=== PATIENT | female | born 1995 ===

== ENCOUNTER 2017-04-03 18:33 | Emergency (ER) | payer MEDICAID ==
[2017-04-03 19:31] VITALS: BMI 23.5
[2017-04-03 19:59] LABS: BASO # 0.02 K/mm3 (0.0-2.0); BASO % 0.4 % (0.0-3.0); GRAN # 3.37 (1.4-6.5); GRAN % 60.4 % (50.0-68.0); LYMPH # 1.3 (1.2-3.4); LYMPH % 23.9 % (22.0-35.0); MEAN CELL VOLUME 77.9 fl (80.0-105.0); MEAN CORPUSCULAR HEMOGLOBIN 24.8 pg (25.0-35.0); MEAN CORPUSCULAR HGB CONC 31.8 g/dl (31.0-37.0); MEAN PLATELET VOLUME 9.5 fl (7.0-11.0); MONO # 0.9 (0.1-0.6); MONO % 15.3 % (1.0-6.0); RBC 4.44 10^6/uL (3.5-6.1); RED CELL DISTRIBUTION WIDTH 15.5 % (11.5-14.5); WHITE BLOOD COUNT 5.6 10^3/ul (4.5-11.0)
[2017-04-03 20:03] LABS: URINE BILIRUBIN NEGATIVE (NEGATIVE); URINE BLOOD TRACE-INTACT (NEGATIVE); URINE GLUCOSE (UA) NEGATIVE (NEGATIVE); URINE LEUKOCYTE ESTERASE SMALL Leu/uL (NEGATIVE); URINE NITRATE NEGATIVE (NEGATIVE); URINE PROTEIN 100 mg/dL (<30 mg/dL); URINE UROBILINOGEN 0.2 E.U./dL (<1 E.U./dL)
[2017-04-03 20:08] LABS: URINE APPEARANCE SLIGHT-CLOUDY (CLEAR); URINE COLOR YELLOW (YELLOW)
[2017-04-03 20:13] LABS: ALB/GLOB RATIO 1.3 (1.1-1.8); ALBUMIN 4.4 g/dL (3.0-4.8); ALT/SGPT 29 U/L (7-56); AST/SGOT 40 U/L (14-36); BLOOD UREA NITROGEN 11 mg/dL (7-21); CALCIUM 9.6 mg/dL (8.4-10.5); GFR AFRICAN-AMERICAN > 60; GFR NON-AFRICAN AMERICAN > 60
[2017-04-03 20:17] LABS: URINE BACTERIA SMALL (NEG); URINE EPITHELIAL CELLS TNTC /hpf (0-5); URINE RBC 0 - 2 /hpf (0-2); URINE WBC 15 - 20 /hpf (0-6)
--- NOTE | 2017-04-03 20:42 | ED PDOC ---
Arrival/HPI - General Chief Complaint: Syncope Time Seen by Provider: 04/03/17 18:55 Historian: Patient, Family (sister) EM Caveat: Acuity of Condition - History of Present Illness Narrative History of Present Illness (Text): 04/03/17 20:34 Pt is a 21 yo Female brought in by ambulance for a syncopal event that lasted over 20 minutes according to the patient's sister, who is at bedside. Pt reports that she was sleeping all day, got up to have a shower and fainted in the bathroom, hitting her head on the wall before she passed out. Reports that the last syncopal event occurred in [place]; when she returned to home, an EEG was done along with labs and was told to drink more fluids and take a multivitamin. EMT could not arouse pt today until en route to [facility]. Pt reports that she feels like she may be sick and had sick contacts recently. Denies chest pain, shortness of breath, nausea, vomiting, diarrhea, neck pain or stiffness, GI bleed, hematuria. Time/Duration: Prior to Arrival (17:26) Symptom Onset: Sudden Symptom Course: Unchanged, Improving Quality: Unable to Describe Severity Level: 3 Activities at Onset: Rest Context: Home Past Medical History - Provider Review Nursing Documentation Reviewed: Yes - Travel History Have you recently traveled outside [place] w/in the past 3 mons?: Yes If Yes, travel location?: [place] - Infectious Disease Hx of Infectious Diseases: None - Reproductive Menopause: No - Neurological Hx Syncope: Yes - Endocrine/Metabolic Hx Endocrine Disorders: No - Integumentary Hx Dermatological Disorder: No - Musculoskeletal/Rheumatological Hx Musculoskeletal Disorders: No - Gastrointestinal Hx Gastrointestinal Disorders: No - Psychiatric Hx Psychophysiologic Disorder: No Hx Substance Use: No - Anesthesia Hx Anesthesia: No Family/Social History - Physician Review Nursing Documentation Reviewed: Yes Family/Social History: Unknown Family HX Smoking Status: Never Smoked Hx Alcohol Use: No Hx Substance Use: No Allergies/Home Meds Allergies/Adverse Reactions: Allergies No Known Allergies Allergy (Verified 04/03/17 19:28) Review of Systems - Review of Systems Systems not reviewed;Unavailable: Acuity of Condition Constitutional: Normal Eyes: Normal ENT: Normal Respiratory: Normal Cardiovascular: Normal Gastrointestinal: Normal Genitourinary Female: Normal Musculoskeletal: Normal Skin: Normal Neurological: Normal Endocrine: Normal Hemo/Lymphatic: Normal Psychiatric: Normal Physical Exam Vital Signs Reviewed: Yes Vital Signs Temp Pulse Resp BP Pulse Ox 04/03/17 22:44 98.9 F 60 16 106/80 97 04/03/17 19:17 99.3 F 71 20 95/56 L 98 04/03/17 19:01 98.9 F 75 16 96/62 L 97 Temperature: Afebrile Blood Pressure: Normal Pulse: Regular Respiratory Rate: Normal Appearance: Positive for: Well-Appearing, Non-Toxic, Comfortable Pain Distress: None Mental Status: Positive for: Alert and Oriented X 3 - Systems Exam Head: Present: Atraumatic, Normocephalic Pupils: Present: PERRL Extroacular Muscles: Present: EOMI Conjunctiva: Present: Normal Mouth: Present: Moist Mucous Membranes Neck: Present: Normal Range of Motion Respiratory/Chest: Present: Clear to Auscultation, Good Air Exchange. No: Respiratory Distress, Accessory Muscle Use Cardiovascular: Present: Regular Rate and Rhythm, Normal S1, S2. No: Murmurs Abdomen: Present: Normal Bowel Sounds. No: Tenderness, Distention, Peritoneal Signs Back: Present: Normal Inspection Upper Extremity: Present: Normal Inspection. No: Cyanosis, Edema Lower Extremity: Present: Normal Inspection. No: Edema Neurological: Present: GCS=15, CN II-XII Intact, Speech Normal Skin: Present: Warm, Dry, Normal Color. No: Rashes Psychiatric: Present: Alert, Oriented x 3, Normal Insight, Normal Concentration Medical Decision Making ED Course and Treatment: 04/03/17 20:42 Impression Pt is a 21 yo Female brought in by ambulance for a syncopal event that lasted over 20 minutes according to the patient's sister. On PE, pt is A&Ox3, resting comfortably in bed byut complains of ELLIOTT and weakness. Plan: Assess electrolytes, cbc, glucose, Assess and dispo Progress Note Positive for UTI Low Fe of 26 and percent saturation low at 6%; iron def anemia likely cause of syncope Head CT w/o contrast reveals chronic sinusitis other curry unremarkable Discussed findings with pt and advised to follow up with PMD in the next 2 days ; iron supplementation given and advised on diet and hydration - Lab Interpretations Microbiology Results: Microbiology Results 04/03/17 20:00 Urine,Clean Catch Urine Culture - Final Lab Results: 04/03/17 19:45 04/03/17 19:45 Lab Results 04/03/17 19:45: Iron 26 L, TIBC 420, % Saturation 6 L 04/03/17 19:45: Sodium 138, Potassium 3.8, Chloride 103, Carbon Dioxide 22, Anion Gap 17, BUN 11, Creatinine 0.9, Est GFR ( Amer) > 60, Est GFR (Non- Af Amer) > 60, Random Glucose 95, Calcium 9.6, Total Bilirubin 0.4, AST 40 H, ALT 29, Alkaline Phosphatase 72, Total Protein 7.7, Albumin 4.4, Globulin 3.3, Albumin/Globulin Ratio 1.3 04/03/17 19:45: Urine Color Yellow, Urine Appearance Slight-cloudy, Urine pH 6.0 , Ur Specific [place] >= 1.030, Urine Protein 100 H, Urine Glucose (UA) Negative , Urine Ketones 40 H, Urine Blood Trace-intact H, Urine Nitrate Negative, Urine Bilirubin Negative, Urine Urobilinogen 0.2, Ur Leukocyte Esterase Small H, Urine RBC 0 - 2, Urine WBC 15 - 20, Ur Epithelial Cells Tntc, Urine Bacteria Small 04/03/17 19:45: WBC 5.6, RBC 4.44, Hgb 11.0 L, Hct 34.6 L, MCV 77.9 L, MCH 24.8 L, MCHC 31.8, RDW 15.5 H, Plt Count 296, MPV 9.5, Gran % 60.4, Lymph % (Auto) 23.9, [place] % (Auto) 15.3 H, Eos % (Auto) 0.0 L, Baso % (Auto) 0.4, Gran # 3.37, Lymph # (Auto) 1.3, [place] # (Auto) 0.9 H, Eos # (Auto) 0.0, Baso # (Auto) 0.02 I have reviewed the lab results: Yes Interpretation: Abnormal lab values (Pos UTI) - RAD Interpretation Narrative RAD Interpretations (Text): 04/03/17 21:53 HEAD W/O CONTRAST Exam Date: 04/03/17 This imaging exam was performed at [facility] EXAM: CT Head Without Intravenous Contrast CLINICAL HISTORY: 21 years old, female; Signs and symptoms; Syncope and collapse and other: Syncope TECHNIQUE: Axial computed tomography images of the head/brain without intravenous contrast. All CT scans at this facility use one or more dose reduction techniques, viz.: automated exposure control; ma/kV adjustment per patient size (including targeted exams where dose is matched to indication; i.e. head); or iterative reconstruction technique. Coronal and sagittal reformatted images were created and reviewed. COMPARISON: No relevant prior studies available. FINDINGS: Brain: No intracranial hemorrhage. No mass. No definite edema. Ventricles: No hydrocephalus. Bones/joints: No acute fracture. Soft tissues: Unremarkable. Sinuses: Moderate to extensive mucosal thickening/fluid of ethmoid sinuses. [id number] mucosal thickening/air fluid levels of maxillary sinuses. Minimal mucosal thickening of sphenoid sinuses. Mastoid air cells: No mastoid effusion. Orbits: Unremarkable as visualized. IMPRESSION: 1. No definite acute intracranial abnormality. 2. Sinus disease. Radiology Orders: 04/03/17 20:56 HEAD W/O CONTRAST [CT] Stat - Medication Orders Current Medication Orders: Discontinued Medications Nitrofurantoin Macrocrystals (Macrobid) 100 mg PO Q12 STA Stop: 04/03/17 20:52 Last Admin: 04/03/17 21:48 Dose: 100 mg Disposition/Present on Arrival - Present on Arrival Any Indicators Present on Arrival: Yes History of DVT/PE: No History of Uncontrolled Diabetes: No Urinary Catheter: No History of Decub. Ulcer: No History Surgical Site Infection Following: None - Disposition Have Diagnosis and Disposition been Completed?: Yes Diagnosis: Syncopal episodes, UTI (urinary tract infection) Disposition: HOME/ ROUTINE Disposition Time: 22:01 Patient Plan: Discharge Condition: STABLE Discharge Instructions (ExitCare): Urinary Tract Infection in Women (ED), Syncope (ED), Iron Deficiency Anemia (ED) Additional Instructions: Dear Catalina, You have been prescribed medication for a urinary tract infection along with iron supplementation for anemia, both of which may have caused you to feel weak and faint. Please take the medication as directed and see your primary doctor in the next few days. Drink plenty of fluids and eat regular meals. If you develop any alarming symptoms such as a high fever, shortness of breath, chest pain or stomacjh pain, return to the ER for evaluation. All the best in your recovery! Prescriptions: Iron,Carbonyl/Ascorbic Acid [Iron 100-Vitamin C Tablet] 1 each PO Q12 14 Days # 28 tablet Nitrofurantoin Macrocrystal [Nitrofurantoin] 100 mg PO BID 7 Days #14 capsule Forms: [employer] (Taiwanese)
[2017-04-03 21:24] LABS: IRON 26 ug/dL (45-180)
[2017-04-03 21:34] LABS: % IRON SATURATION 6 % (20-55); TOTAL IRON BINDING CAPACITY 420 ug/dL (265-497)
--- NOTE | 2017-04-03 21:41 | CT ---
EXAM: CT Head Without Intravenous Contrast CLINICAL HISTORY: 21 years old, female; Signs and symptoms; Syncope and collapse and other: Syncope TECHNIQUE: Axial computed tomography images of the head/brain without intravenous contrast. All CT scans at this facility use one or more dose reduction techniques, viz.: automated exposure control; ma/kV adjustment per patient size (including targeted exams where dose is matched to indication; i.e. head); or iterative reconstruction technique. Coronal and sagittal reformatted images were created and reviewed. COMPARISON: No relevant prior studies available. FINDINGS: Brain: No intracranial hemorrhage. No mass. No definite edema. Ventricles: No hydrocephalus. Bones/joints: No acute fracture. Soft tissues: Unremarkable. Sinuses: Moderate to extensive mucosal thickening/fluid of ethmoid sinuses. [id number]-[id number] mucosal thickening/air fluid levels of maxillary sinuses. Minimal mucosal thickening of sphenoid sinuses. Mastoid air cells: No mastoid effusion. Orbits: Unremarkable as visualized. IMPRESSION: 1. No definite acute intracranial abnormality. 2. Sinus disease.
[2017-04-03 22:46] VITALS: BP 106/80; PULSE 60; RESP 16; TEMP 98.9; O2SAT 97
== END 2017-04-03 22:44 | disposition home or self-care (01) ==
LOC: ED 18:33
DX: R55 Syncope and collapse (principal); N39.0 Urinary tract infection, site not specified

== ENCOUNTER 2017-04-05 14:31 | Emergency (ER) | payer MEDICAID ==
[2017-04-05 15:57] VITALS: BMI 25.0
[2017-04-05 16:00] VITALS: BP 95/63; TEMP 99.5
[2017-04-05 16:03] VITALS: O2SAT 99
[2017-04-05] MEDS ORDERED: Sodium Chloride 0.9% 1,000 ML IV STA (16:34)
--- NOTE | 2017-04-05 16:41 | ED PDOC ---
Arrival/HPI - General Chief Complaint: Female Genitourinary Time Seen by Provider: 04/05/17 15:49 Historian: Patient - History of Present Illness Narrative History of Present Illness (Text): 04/05/17 16:36 Pt is a 21 yo F with no significant PMH presents to Emergency department due to urinary incontinence 2/2 UTI and fatigue. Patient was recently seen at [facility] Emergency department 2 days ago due to syncopal episode and fatigue. Pt was found to have UTI and anemia. Patient was discharged with Macrobid and Iron pills. However, due to an insurance issue, patient was unable to obtain medications until today. Pt states that today she had urinary urgency, but was unable to urinate. Pt states that fatigue has remained the same since she was discharged 2 days ago. Pt complains of RLQ and suprapubic abdominal pain. Pt denied chest pain, sob, nausea, vomiting, fever, chills, headache, or dizziness. Past Medical History - Infectious Disease Hx of Infectious Diseases: None - Cardiac Hx Cardiac Disorders: No - Pulmonary Hx Respiratory Disorders: No - Neurological Hx Syncope: Yes - HEENT Hx HEENT Disorder: No - Renal Hx Renal Disorder: No - Endocrine/Metabolic Hx Endocrine Disorders: No - Hematological/Oncological Hx Anemia: Yes - Integumentary Hx Dermatological Disorder: No - Musculoskeletal/Rheumatological Hx Musculoskeletal Disorders: No - Gastrointestinal Hx Gastrointestinal Disorders: No - Psychiatric Hx Psychophysiologic Disorder: No Hx Substance Use: No - Anesthesia Hx Anesthesia: No Family/Social History Family/Social History: No Known Family HX Smoking Status: Never Smoked Hx Alcohol Use: No Hx Substance Use: No Allergies/Home Meds Allergies/Adverse Reactions: Allergies No Known Allergies Allergy (Verified 04/05/17 15:57) Review of Systems - Review of Systems Constitutional: Normal Eyes: Normal ENT: Normal Respiratory: Normal Cardiovascular: Chest Pain Gastrointestinal: Abdominal Pain Genitourinary Female: Normal Musculoskeletal: Normal Skin: Normal Neurological: Normal Endocrine: Normal Hemo/Lymphatic: Normal Psychiatric: Normal Physical Exam Vital Signs Temp Pulse Resp BP Pulse Ox 04/05/17 18:05 100 H 19 99 04/05/17 16:00 99.5 F 107 H 20 95/63 L 99 04/05/17 15:58 99.5 F 118 H 20 95/63 L 98 Finger Stick Blood Glucose: 89 - Systems Exam Head: Present: Atraumatic, Normocephalic Extroacular Muscles: Present: EOMI Mouth: Present: Moist Mucous Membranes Neck: Present: Normal Range of Motion Respiratory/Chest: Present: Clear to Auscultation. No: Accessory Muscle Use, Wheezes, Rales, Rhonchi Cardiovascular: Present: Regular Rate and Rhythm, Normal S1, S2. No: Murmurs, Rub, Gallop Abdomen: Present: Tenderness (RLQ, suprapubic). No: Distention, Peritoneal Signs, Guarding Upper Extremity: Present: Normal Inspection Lower Extremity: Present: Normal Inspection Neurological: Present: GCS=15 Skin: Present: Warm, Dry, Normal Color Psychiatric: Present: Alert, Oriented x 3 Medical Decision Making ED Course and Treatment: 04/05/17 16:42 Assessment: 21 yo F with no significant PMH presents to Emergency department for UTI and anemia. Plan: - CBC - CMP - EKG - Lipase - Coags - NPO - NS bolus 04/05/17 17:28 CBC consistent with Iron deficiency anemia. Urinalysis negative for UTI. 04/05/17 17:57 Chest X-ray interpreted by myself is negative CT offered, patient denied - Lab Interpretations Lab Results: 04/05/17 16:48 04/05/17 16:48 Lab Results 04/05/17 16:48: Sodium 138, Potassium 4.1, Chloride 103, Carbon Dioxide 23, Anion Gap 16, BUN 6 L, Creatinine 0.8, Est GFR ( Amer) > 60, Est GFR (Non -Af Amer) > 60, Random Glucose 94, Calcium 9.1, Total Bilirubin 0.3, AST 39 H, ALT 34, Alkaline Phosphatase 61, Total Protein 7.4, Albumin 4.2, Globulin 3.2, Albumin/Globulin Ratio 1.3, Lipase 67 04/05/17 16:48: PT 16.0 H, INR 1.39 H, APTT 32.3 04/05/17 16:48: WBC 3.9 L D, RBC 4.36, Hgb 10.8 L, Hct 34.0 L, MCV 78.0 L, MCH 24.8 L, MCHC 31.8, RDW 15.4 H, Plt Count 248, MPV 9.4, Gran % 65.7, Lymph % ( Auto) 17.9 L, [place] % (Auto) 16.4 H, Eos % (Auto) 0.0 L, Baso % (Auto) 0.0, Gran # 2.56, Lymph # (Auto) 0.7 L, [place] # (Auto) 0.6, Eos # (Auto) 0.0, Baso # (Auto ) 0.00 04/05/17 15:58: Urine Color Yellow, Urine Appearance Turbid, Urine pH 6.0, Ur Specific [place] >= 1.030, Urine Protein Trace H, Urine Glucose (UA) Negative, Urine Ketones 15 H, Urine Blood Moderate H, Urine Nitrate Negative, Urine Bilirubin Negative, Urine Urobilinogen 0.2, Ur Leukocyte Esterase Negative, Urine RBC 0 - 2, Urine WBC 0 - 2, Ur Epithelial Cells 4 - 5, Urine Bacteria Few , Urine HCG, Qual Negative - RAD Interpretation Radiology Orders: 04/05/17 16:40 CXR [CHEST TWO VIEWS (PA/LAT)] [RAD] Stat - Medication Orders Current Medication Orders: Discontinued Medications Sodium Chloride (Sodium Chloride 0.9%) 1,000 mls @ 1,000 mls/hr IV .Q1H STA Stop: 04/05/17 17:33 Last Admin: 04/05/17 16:49 Dose: 1,000 mls/hr eMAR Start Stop Document 04/05/17 16:49 [email or web address] (Rec: 04/05/17 16:49 [email or web address] [id number]) Intravenous Solution Start Date 04/05/17 Start Time 16:49 End Date 04/05/17 Disposition/Present on Arrival - Present on Arrival Any Indicators Present on Arrival: No History of DVT/PE: No History of Uncontrolled Diabetes: No Urinary Catheter: No History of Decub. Ulcer: No History Surgical Site Infection Following: None - Disposition Have Diagnosis and Disposition been Completed?: Yes Diagnosis: Anemia Disposition: HOME/ ROUTINE Disposition Time: 17:58 Condition: STABLE Discharge Instructions (ExitCare): Urinary Tract Infection in Women (DC), Iron Deficiency Anemia (ED) Additional Instructions: 1. Take Nitrofurantoin and Iron pills as prescribed 2. Follow up with PMD within 1 week Referrals: Lizandro Dunham MD [Primary Care Provider] - Follow up with primary Forms: [employer] (Luxembourgish), [employer] (Ugandan), SCHOOL NOTE
[2017-04-05 16:49] LABS: URINE APPEARANCE TURBID (CLEAR); URINE BILIRUBIN NEGATIVE (NEGATIVE); URINE BLOOD MODERATE (NEGATIVE); URINE COLOR YELLOW (YELLOW); URINE GLUCOSE (UA) NEGATIVE (NEGATIVE); URINE LEUKOCYTE ESTERASE NEGATIVE Leu/uL (NEGATIVE); URINE NITRATE NEGATIVE (NEGATIVE); URINE PROTEIN TRACE mg/dL (<30 mg/dL); URINE UROBILINOGEN 0.2 E.U./dL (<1 E.U./dL)
[2017-04-05 16:53] LABS: HCG,QUALITATIVE URINE NEGATIVE (NEGATIVE)
[2017-04-05 16:55] LABS: URINE BACTERIA FEW (NEG); URINE RBC 0 - 2 /hpf (0-2); URINE WBC 0 - 2 /hpf (0-6)
[2017-04-05 17:00] LABS: GRAN # 2.56 (1.4-6.5); GRAN % 65.7 % (50.0-68.0); HEMOGLOBIN 10.8 g/dL (12.0-16.0); LYMPH # 0.7 (1.2-3.4); LYMPH % 17.9 % (22.0-35.0); MEAN CORPUSCULAR HEMOGLOBIN 24.8 pg (25.0-35.0); MEAN CORPUSCULAR HGB CONC 31.8 g/dl (31.0-37.0); MEAN PLATELET VOLUME 9.4 fl (7.0-11.0); MONO # 0.6 (0.1-0.6); MONO % 16.4 % (1.0-6.0); RBC 4.36 10^6/uL (3.5-6.1); RED CELL DISTRIBUTION WIDTH 15.4 % (11.5-14.5); WHITE BLOOD COUNT 3.9 10^3/ul (4.5-11.0)
[2017-04-05 17:10] LABS: INR 1.39 (0.93-1.08); PARTIAL THROMBOPLASTIN TIME 32.3 Seconds (25.1-36.5)
[2017-04-05 17:20] LABS: ALB/GLOB RATIO 1.3 (1.1-1.8); ALBUMIN 4.2 g/dL (3.0-4.8); ALT/SGPT 34 U/L (7-56); AST/SGOT 39 U/L (14-36); BLOOD UREA NITROGEN 6 mg/dL (7-21); CALCIUM 9.1 mg/dL (8.4-10.5); GFR AFRICAN-AMERICAN > 60; GFR NON-AFRICAN AMERICAN > 60; LIPASE 67 U/L (23-300)
[2017-04-05 18:06] VITALS: PULSE 100; RESP 19
--- NOTE | 2017-04-05 18:28 | RAD ---
HISTORY: Chest pain COMPARISON: No prior. TECHNIQUE: Chest PA and lateral FINDINGS: LUNGS: No active pulmonary disease. PLEURA: No significant pleural effusion identified. No pneumothorax apparent. CARDIOVASCULAR: Normal. OSSEOUS STRUCTURES: No significant abnormalities. VISUALIZED UPPER ABDOMEN: Normal. OTHER FINDINGS: None. IMPRESSION: No active disease.
--- NOTE | 2017-04-06 10:06 | CARD ---
APPROVED REPORT EKG Measurement Heart [id number] <Conclusion> Normal sinus rhythm Possible limb lead reversal. Suggest repeat ECG
== END 2017-04-05 18:18 | disposition home or self-care (01) ==
LOC: ED 14:31
DX: D64.9 Anemia, unspecified (principal); N39.0 Urinary tract infection, site not specified
CPT/HCPCS: 71046; 80053; 81001; 82948; 83690; 84703; 85025; 85610; 85730; 93005; 99283; J7040